=== PATIENT | female | born 1970 | race Caucasian/White ===

== ENCOUNTER 2018-05-12 11:00 | Outpatient (REF) | payer BC, SELFPAY ==
--- NOTE | 2018-05-12 10:15 | PAPFT_PTH ---
PATIENT: Jana Valdes LOC: [facility] U#:[id number] AGE/SX: 47/F ROOM: RE05/12/[address]: Mannie Colvin : 1970 BED: DIS: 05/12/2018 SPEC #: [id number] RECD: 05/13/18 13:09 STATUS: CEFERINO REIndigo #: [id number] JANINE: 05/12/18 10:[address]: Mannie Colivn DEPT: [facility] Cytology RECD BY: Negrita Nelson Tissues: 1 - CX/ENDOCX FOR PAP SMEARS Procedures: PAP THIN PREP/[facility] Screening HPV DNA PROBE Comments: [id number]
[2018-05-12 22:51] LABS: Cholesterol 181 mg/dL (50-200); HDL Cholesterol 96 mg/dL (40-60); LDL CHOLESTEROL 77 mg/dL (<100); Triglyceride 45 mg/dL (30-150)
== END 2018-05-12 11:20 ==
LOC: NCHCN 11:00
PROVIDERS: PCP Internal Medicine; Visit Provider Internal Medicine
DX: Z00.00 Encounter for general adult medical examination without abnormal findings (principal); Z12.4 Encounter for screening for malignant neoplasm of cervix; Z11.51 Encounter for screening for human papillomavirus (HPV); Z13.220 Encounter for screening for lipoid disorders
CPT/HCPCS: 80061; 83721; 88142; 87624

== ENCOUNTER 2020-12-13 11:00 | Outpatient (REF) | payer BC, SELFPAY ==
[2020-12-13 13:35] LABS: Abs Immature Grans 0.01 10^3/uL (0.0-0.06); Absolute Basophil Count 0.09 10^3/uL (0.0-0.2); Absolute Lymphocyte Count 1.55 10^3/uL (1.2-3.4); Absolute Monocyte Count 0.64 10^3/uL (0.1-0.8); Absolute Neutrophil Count 3.51 10^3/uL (1.2-6.7); Basophils % 1.5; Eosinophils % 6.5; HCT 41.9 % (36.0-46.0); HGB 14.2 g/dL (11.2-15.7); Immature Grans % 0.2; MCH 32.6 pg (27.0-33.0); MCHC 33.9 % (32.0-36.0); MCV 96.1 fL (80-95); MPV 9.4 fL (8.0-11.0); Monocytes % 10.3; Neutrophils % 56.5; Nucleated RBC 0 %; Platelet Count 275 10^3/uL (130-400); RBC 4.36 10^6/uL (3.93-5.22); RDW 12.1 % (11.7-14.6); RDW-SD 43.4 fL
[2020-12-13 13:55] LABS: Glucose 89 mg/dL (74-106); TSH (W/Ref FT4) 2.95 uIU/mL (0.36-3.74)
== END 2020-12-13 11:01 | disposition home or self-care (01) ==
LOC: NCHCN 11:00
PROVIDERS: PCP Internal Medicine; Visit Provider Internal Medicine
DX: R53.83 Other fatigue (principal); R63.5 Abnormal weight gain
CPT/HCPCS: 82947; 84443; 85025

== ENCOUNTER 2021-06-20 11:48 | Outpatient (REF) | payer BC, SELFPAY ==
[2021-06-20 16:41] LABS: Anion Gap 10.9 mmol/L (3-11); BUN 17 mg/dL (7-18); CO2 23.1 mmol/L (21.0-32.0); CREATININE 0.6 mg/dL (0.55-1.02); Calcium 9.2 mg/dL (8.5-10.1); Chloride 107 mmol/L (98-107); Glucose 85 mg/dL (74-106); Potassium 4.4 mmol/L (3.5-5.1); Sodium 141 mmol/L (136-145)
[2021-06-20 16:49] LABS: Hemoglobin A1C 5.2 % (<5.7)
[2021-06-23 09:47] LABS: Hepatitis C Ab w Rflx HCV PCR Negative (Negative)
== END 2021-06-20 11:49 | disposition home or self-care (01) ==
LOC: NCHCN 11:48
PROVIDERS: PCP Internal Medicine; Visit Provider Nurse Practitioner Family
DX: Z00.00 Encounter for general adult medical examination without abnormal findings (principal); R53.83 Other fatigue; Z13.1 Encounter for screening for diabetes mellitus; Z11.59 Encounter for screening for other viral diseases
CPT/HCPCS: 80048; 86803; 83036

== ENCOUNTER 2023-06-29 11:49 | Outpatient (REF) | payer OTHER, SELFPAY ==
--- NOTE | 2023-06-29 10:30 | PAPFT_PTH ---
PATIENT: Jana Valdes LOC: [facility] U#:[id number] AGE/SX: 52/F ROOM: RE06/29/[address]: Aishwarya Silverman : 1970 BED: DIS: 06/29/2023 SPEC #: [id number] RECD: 06/30/23 13:10 STATUS: CEFERINO REIndigo #: [id number] JANINE: 06/29/23 10:[address]: Aishwarya Silverman DEPT: [facility] Cytology RECD BY: Negrita Nelson ENTERED: 06/30/23 13:10 SP TYPE: PAPFT OTHR DR: Manine Colvin Tissues: 1 - CX/ENDOCX FOR PAP SMEARS Procedures: PAP THIN PREP/[facility] Screening HPV DNA PROBE Comments: [id number] (CHLAMYDIA/GC)
[2023-06-29 17:28] LABS: Anion Gap 5.5 mmol/L (3-11); BUN 14 mg/dL (7-18); CO2 28.5 mmol/L (21.0-32.0); CREATININE 0.6 mg/dL (0.55-1.02); Calcium 9.1 mg/dL (8.5-10.1); Calculated LDL 69 mg/dL (<100); Chloride 105 mmol/L (98-107); Cholesterol 181 mg/dL (<200); Estimated GFR 109.28 (mL/min/1.73m2); Glucose 92 mg/dL (74-106); HDL Cholesterol 101 mg/dL (40-60); Potassium 4.3 mmol/L (3.5-5.1); Sodium 139 mmol/L (136-145); Triglyceride 59 mg/dL (<150)
[2023-07-01 14:37] LABS: Chlamydia Result Negative (Negative); GC Result Negative (Negative)
== END 2023-06-29 11:50 | disposition home or self-care (01) ==
LOC: NCHCN 11:49
PROVIDERS: PCP Internal Medicine; Visit Provider Nurse Practitioner Family
DX: Z00.00 Encounter for general adult medical examination without abnormal findings (principal)
CPT/HCPCS: 80048; 80061; 87491; 87591; 88142; 87624

== ENCOUNTER 2024-07-03 18:08 | Outpatient (REF) | payer OTHER, SELFPAY ==
[2024-07-03 15:41] LABS: Abs Immature Grans 0.01 10^3/uL (0.0-0.06); Absolute Basophil Count 0.12 10^3/uL (0.0-0.2); Absolute Eosinophil Count 0.66 10^3/uL (0.0-0.7); Absolute Lymphocyte Count 1.85 10^3/uL (1.2-3.4); Absolute Monocyte Count 0.51 10^3/uL (0.1-0.8); Absolute Neutrophil Count 3.25 10^3/uL (1.2-6.7); Basophils % 1.9 %; Eosinophils % 10.3 %; HGB 14.8 g/dL (11.2-15.7); Immature Grans % 0.2 %; Lymphocytes % 28.9 %; MCH 31.8 pg (27.0-33.0); MCHC 33.6 % (32.0-36.0); MCV 94 fL (80-95); MPV 9.8 fL (8.0-11.0); Neutrophils % 50.7 %; Platelet Count 252 10^3/uL (130-400); RBC 4.66 10^6/uL (3.93-5.22); RDW 12.1 % (11.7-14.6); RDW-SD 42.5 fL
[2024-07-03 16:05] LABS: BUN 14 mg/dL (7-18); CREATININE 0.8 mg/dL (0.55-1.02); Calcium 9.7 mg/dL (8.5-10.1); Chloride 107 mmol/L (98-107); Estimated GFR 89.15 (mL/min/1.73m2); Glucose 86 mg/dL (74-106); Potassium 4.9 mmol/L (3.5-5.1); Sodium 143 mmol/L (136-145); TSH (W/Ref FT4) 3.43 uIU/mL (0.36-3.74)
== END 2024-07-03 18:09 | disposition home or self-care (01) ==
LOC: NCHCN 18:08
PROVIDERS: PCP Internal Medicine; Visit Provider Nurse Practitioner Family
DX: R00.2 Palpitations (principal)
CPT/HCPCS: 80048; 84443; 85025